=== PATIENT | female | born 1990 | race Caucasian/White ===

== ENCOUNTER 2017-11-14 22:14 | Emergency (ER) | payer MEDICAID ==
[~2017-11-14] VITALS: Ht 157.5 cm; Wt 65.3 kg
[2017-11-15] MEDS ORDERED: ONDANSETRON HCL 4 MG/2 ML VIAL IV ONE (02:00)
[2017-11-15] MEDS ORDERED: NALBUPHINE HCL 10 MG/1ml INJECTION IV ONE (02:00)
[2017-11-15 02:34] LABS: Urine Bacteria NONE SEEN /hpf (None Seen); Urine Blood Negative /uL (Negative); Urine Specific Gravity 1.025 (1.001-1.035); Urine WBC 4 /hpf (0 - 5)
[2017-11-15 03:19] VITALS: BP 100/56
== END 2017-11-15 03:57 | disposition home or self-care (01) ==
LOC: ER 22:14
DX: S32.121A Minimally displaced Zone II fracture of sacrum, initial encounter for closed fracture (principal); M54.16 Radiculopathy, lumbar region; M25.552 Pain in left hip; M25.551 Pain in right hip; W19.XXXA Unspecified fall, initial encounter; Y93.39 Activity, other involving climbing, rappelling and jumping off; Y92.89 Other specified places as the place of occurrence of the external cause; Y99.8 Other external cause status
CPT/HCPCS: 72131; 73700; 81001; 81025; 93970; 96374; 96375; 99285; J2300; J2405